=== PATIENT | female | born 1965 | race Caucasian/White ===

== ENCOUNTER 2018-12-18 10:36 | Emergency (ER) | payer OTHER, SELFPAY ==
[2018-12-18 10:53] VITALS: BP 138/84; PULSE 92; RESP 14; TEMP 36.4; O2SAT 98
[2018-12-18] MEDS: hydrOXYzine pamoate 25 MG CAPSULE 50 MG PO (12:09)
[2018-12-18 12:49] VITALS: BP 133/85; PULSE 65; RESP 18; O2SAT 99
--- NOTE | 2018-12-18 13:58 | ED.RECABL ---
HPI - Recheck/Abnormal Lab/Rx <BLAKE Chandler- - Last Filed: 12/18/18 15:43> General Chief Complaint: Recheck/Abnormal Lab/Rx Stated Complaint: shortness of breath and COPD diagnosed O2 low? Time Seen by Provider: 12/18/18 11:41 Source: patient and family Mode of arrival: Ambulatory Limitations: no limitations History of Present Illness HPI narrative: The patient is a 53-year-old female former smoker being evaluated for possibility of COPD who presents with a chief complaint of being worried about her oxygen levels. She states that she checked her SpO2 at home and it was 94%. She states that she was recently diagnosed with COPD, has a cardiology appointment pending as well as a sleep study scheduled. She is very concerned that her oxygen levels 97 at home, but then it suddenly decreased to 94%. She denies any fevers. She does complain of anxiety, states that she stopped taking her Prozac by herself in July. She states that this is her 6th emergency department visit since her possible COPD diagnosis. She denies any chest pain. She denies any current shortness of breath. She is in to be evaluated because her SpO2 at home was 94% Related Data Allergies Allergy/AdvReac Type Severity Reaction Status Date / Time acetaminophen [From Percocet] AdvReac Intermediate Anxiety Verified 12/18/18 10:58 doxycycline AdvReac Intermediate Anxiety Verified 12/18/18 10:58 oxycodone [From Percocet] AdvReac Intermediate Anxiety Verified 12/18/18 10:58 Review of Systems <JANN Chandler - Last Filed: 12/18/18 15:43> Review of Systems Narrative: GENERAL: Denies chills, fatigue, malaise, fever, sweats. HEENT: Denies sinus pain, ear pain, sore throat, difficulty swallowing, dizziness. RESPIRATORY: See HPI CARDIOVASCULAR: Denies chest pain, palpitations, orthopnea, edema, GASTROINTESTINAL: Denies nausea, vomiting, abdominal pain, diarrhea, constipation, melena. : Denies dysuria, frequency, incontinence, hematuria, urinary retention. MUSCULOSKELETAL: denies weakness, joint pain, or bony pain SKIN: Denies rash, skin lesions, or other NEUROLOGIC: Denies weakness, headache, numbness, change in speech, confusion, seizures, incoordination. PSYCHIATRIC: No concerning psychosocial issues. 12 point review of systems is negative except for those stated above Patient History <CLAUDIA Chandler - Last Filed: 12/18/18 15:43> Medical History (Updated 12/18/18 @ 15:41 by CLAUDIA Chandler) COPD (chronic obstructive pulmonary disease) (Acute) Social History Smoking Status: Former smoker Social History Smoking Status: Former smoker alcohol intake frequency: 0-2 drinks per day Substance Use Type: does not use Exam <CLAUDIA Chandlre - Last Filed: 12/18/18 15:43> Narrative Exam Narrative: GENERAL: This is a well-nourished, well-developed patient, in no acute distress HEAD: Atraumatic. Normocephalic. No temporal or scalp tenderness. EYES: Pupils equal round and reactive. Extraocular motions intact. No scleral icterus. No injection or drainage. ENT: Nose without bleeding, purulent drainage or septal hematoma. Throat without erythema, tonsillar hypertrophy or exudate. Uvula midline. Airway patent. NECK: Trachea midline. No JVD or lymphadenopathy. Supple, nontender, no meningeal signs. CARDIOVASCULAR: Regular rate and rhythm RESPIRATORY: Clear to auscultation. Breath sounds equal bilaterally. No wheezes, rales, or rhonchi. No cough. No increased respiratory effort. No accessory muscle use. GASTROINTESTINAL: Abdomen soft, non-tender, nondistended. No hepato-splenomegaly, or palpable masses. No guarding. EXTREMITIES: No clubbing, cyanosis, or edema. No joint tenderness, effusion, or edema noted. BACK: Nontender without deformity or crepitance. No flank tenderness. NEURO: AOx3. SKIN: No rash or erythema. Initial Vital Signs Initial Vital Signs: Vital Signs Temperature 97.6 F 12/18/18 10:53 Pulse Rate 92 H 12/18/18 10:53 Respiratory Rate 14 12/18/18 10:53 Blood Pressure 138/84 12/18/18 10:53 Pulse Oximetry 98 12/18/18 10:53 <Lexi Mederos MD - Last Filed: 12/18/18 19:23> Initial Vital Signs Initial Vital Signs: Vital Signs Temperature 97.6 F 12/18/18 10:53 Pulse Rate 92 H 12/18/18 10:53 Respiratory Rate 14 12/18/18 10:53 Blood Pressure 138/84 12/18/18 10:53 Pulse Oximetry 98 12/18/18 10:53 Course <CLAUDIA Chandler - Last Filed: 12/18/18 15:43> Orders Ordered: ED Orders 12/18/18 12:03 RT Consult Eval and Treat NOW Discontinued Medications Hydroxyzine Pamoate (Vistaril) 50 mg PO NOW ONE Stop: 12/18/18 12:04 Last Admin: 12/18/18 12:09 Dose: 50 mg Documented by: ADRIAN Vital Signs Vital signs: Vital Signs - 8 hr 12/18/18 12:49 Pulse Rate 65 Respiratory Rate 18 Blood Pressure [Left Arm] 133/85 Pulse Oximetry 99 <Lexi Mederos MD - Last Filed: 12/18/18 19:23> Orders Ordered: ED Orders 12/18/18 12:03 RT Consult Eval and Treat NOW Discontinued Medications Hydroxyzine Pamoate (Vistaril) 50 mg PO NOW ONE Stop: 12/18/18 12:04 Last Admin: 12/18/18 12:09 Dose: 50 mg Documented by: ADRIAN Vital Signs Vital signs: Vital Signs - 8 hr 12/18/18 12:49 Pulse Rate 65 Respiratory Rate 18 Blood Pressure [Left Arm] 133/85 Pulse Oximetry 99 MDM - Recheck/Abnormal Lab/Rx <CLAUDIA Chandler - Last Filed: 12/18/18 15:43> [facility] Narrative Medical decision making narrative: The patient is a 53-year-old female who presents with a chief complaint of low oxygen levels at home. She states that she was 94% on room air this morning. Her exam has no acute abnormalities. She denies any chest pain. She presents as she is concerned about her home oxygen levels, states that she is anxious due to her recent diagnosis, and feels confused regarding the possibility of a COPD diagnosis. She states that she is trying to sleep with her home SpO2 monitor on, which I significantly discouraged at this point in time. She was evaluated by respiratory therapist, who did teaching regarding her inhalers and made suggestions for follow-up care. The patient was reassured regarding her vital signs by myself, nursing and respiratory therapy. She felt much better after speaking with respiratory therapist. 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 The patient states understanding regarding return precautions as well as follow-up care in the emergency department. I discussed coming back to the emergency department for any acute concerns such as significant shortness of breath, chest pain etc. Patient has no questions or concerns upon discharge. Discharge Plan Departure Patient Disposition: Home Clinical Impression: At risk for unstable vital signs Discharge Date/Time: 12/18/18 13:09 Instructions: How to Use a Metered-Dose Inhaler Activity Restrictions/Additional Instructions: Please follow up with primary care provider as well as all the referrals that have been put in place for you. As discussed, we are unable to diagnose you with COPD, sleep apnea etc in the emergency department. However it appears as though you are going through outpatient evaluation appropriately. Your oxygen levels have been stable and very good throughout your stay in the emergency department. Please use the respiratory devices Kaylah went over with you as well as the spacer. Please follow up with PCP in the next day or 2. Referrals: Ruddy Arrington MD [Primary Care Provider] -
== END 2018-12-18 13:09 | disposition home or self-care (01) ==
PROVIDERS: Emergency Provider Nurse Practitioner Family
DX: R06.02 Shortness of breath (principal)
CPT/HCPCS: 94150; 99282; 99283